=== PATIENT | male | born 1955 ===

== ENCOUNTER 2017-11-16 19:09 | Emergency (ER) | payer SELFPAY ==
[2017-11-16] MEDS ORDERED: MOTRIN PO ONE (19:35)
[2017-11-16] MEDS ORDERED: MOTRIN ONE (19:39)
[2017-11-16] MEDS ORDERED: TYLENOL PO ONE (21:01)
--- NOTE | 2017-11-16 21:06 | Emergency Department Report ---
ED Fall HPI - General Chief Complaint: Fall Stated Complaint: BACK/SHOULDER PAIN Time Seen by Provider: 11/16/17 20:14 Source: patient Mode of arrival: Ambulatory Limitations: No Limitations - History of Present Illness Initial Comments: 61-year-old male with a past medical history left hip replacement in 2013 presents to the hospital after falling off of a 10 foot roof 2 hours prior to arrival. Patient was cleaning off gutters and fell backwards landing flat when his back. He denies head injury or LOC. Complains of right sided neck pain and left shoulder pain that is moderate in intensity, constant, worse with movement and palpation. Denies paresthesias or focal weakness. - Related Data Previous Rx's Medication Instructions Recorded Last Taken Type Ibuprofen [Motrin] 800 mg PO Q8HR PRN #30 tablet 11/16/17 Unknown Rx Allergies Allergy/AdvReac Type Severity Reaction Status Date / Time No Known Allergies Allergy Unverified 11/16/17 19:23 ED Review of Systems ROS: Stated complaint: BACK/SHOULDER PAIN Other details as noted in HPI Comment: All other systems reviewed and negative ED Past Medical Hx - Past Medical History Previous Medical History?: No - Surgical History Past Surgical History?: Yes Additional Surgical History: Left Hip replacement/ 2013 - Social History Smoking Status: Never Smoker Substance Use Type: None - Medications Home Medications: Home Medications Medication Instructions Recorded Confirmed Last Taken Type Ibuprofen [Motrin] 800 mg PO Q8HR PRN #30 tablet 11/16/17 Unknown Rx ED Physical Exam - General Limitations: No Limitations - Other Other exam information: General: No limitations, patient is alert in no acute distress Head exam: Atraumatic, normocephalic Eyes exam: Normal appearance, pupils equal reactive to light, extraocular movements intact ENT: Moist mucous membrane, normal oropharynx Neck exam: Normal inspection, full range of motion, no meningismus, no midline or paracervical muscle tenderness Respiratory exam: Clear to auscultation bilateral, no wheezes, rales, crackles Cardiovascular: Normal rate and rhythm, normal heart sounds Abdomen: Soft, nondistended, mild right flank tenderness, with normal bowel sounds, no rebound, or guarding Extremity: Full range of motion normal inspection no deformity. Left shoulder from, mild pain with movement, no deformity Back: Normal Inspection, full range of motion, no midline lumbar spinous process tenderness. Tenderness to right paraspinal muscles Neurologic: Alert, oriented x3, cranial nerves intact, no motor or sensory deficit Psychiatric: normal affect, normal mood Skin: Warm, dry, intact ED Course Vital Signs 11/16/17 11/16/17 19:24 22:43 Temperature 98.7 F Pulse Rate 74 52 L Respiratory 16 18 Rate Blood Pressure 158/109 Blood Pressure 126/79 [Left] O2 Sat by Pulse 98 99 Oximetry ED Medical Decision Making - Lab Data Lab Results 11/16/17 Range/Units 21:53 Urine Color Yellow (Yellow) Urine Turbidity Clear (Clear) Urine pH 5.0 (5.0-7.0) Ur Specific [place] 1.015 (1.003-1.030) Urine Protein <15 mg/dl (Negative) mg/dL Urine Glucose (UA) Neg (Negative) mg/dL Urine Ketones Neg (Negative) mg/dL Urine Blood Sm (Negative) Urine Nitrite Neg (Negative) Urine Bilirubin Neg (Negative) Urine Urobilinogen < 2.0 (<2.0) mg/dL Ur Leukocyte Esterase Neg (Negative) Urine WBC (Auto) < 1.0 (0.0-6.0) /HPF Urine RBC (Auto) 4.0 (0.0-6.0) /HPF Urine Mucus Few /HPF - Radiology Data Radiology results: report reviewed FINAL REPORT PROCEDURE: XR SHOULDER 2+V LT TECHNIQUE: LEFT shoulder radiographs including AP views in internal and external rotation and abduction. CPT 00771 HISTORY: s/p fall shoulder pain COMPARISON: No prior studies are available for comparison. FINDINGS: Fracture (s) and/or Dislocation(s): None . Joint space(s): Normal . Soft tissues: Normal . Bone mineralization: Normal . Foreign bodies: None . IMPRESSION: Normal Examination FINAL REPORT PROCEDURE: CT CHEST WO CON TECHNIQUE: Computerized axial tomography of the chest was performed without contrast material. This study is performed without intravenous contrast and the sensitivity for pathology, including neoplasms, adenopathy, abscess, pulmonary embolism and aortic dissection, is reduced. HISTORY: s/p 10ft fall pain COMPARISON: No prior studies are available for comparison. TECHNICAL QUALITY: Satisfactory. FINDINGS: Bilateral lungs and pleural spaces are clear. Hilar structures are within normal limits as visualized on this noncontrast study. Aorta is of normal caliber. There is no evidence of any mediastinal hematoma. Thyroid demonstrates normal size and density. Coronary arterial calcification is noted. There is no pericardial effusion. Mediastinal structures are within normal limits. Vertebral height is normal. Idiopathic skeletal hyperostosis changes are noted involving the lower thoracic spine. Ribs are intact. Sternum and other bones are also intact. IMPRESSION: No acute thoracic injury. No acute pulmonary process. Coronary arterial calcification is noted.. FINAL REPORT PROCEDURE: CT ABDOMEN PELVIS WO CON TECHNIQUE: Computerized axial tomography of the abdomen and pelvis was performed without intravenous contrast. This study is performed without intravascular contrast material and its sensitivity for abdominal and pelvic pathology, including neoplasms, inflammation, abscess, free fluid, thrombosis, arterial dissection and infarction, is reduced compared with a contrast enhanced study. HISTORY: s/p 10ft fall pain COMPARISON: No prior studies are available for comparison. FINDINGS: There are 2 small cystic lesions in the liver larger measuring 7 millimeters and smaller measuring 5 millimeters as seen in images 167 of series 2. An ill-defined hypodense lesion measuring 0.9 centimeters is located in the subdiaphragmatic region of segment 4 as seen image 149 of series 2. Spleen, pancreas and adrenal glands are within normal limits. Bilateral kidneys demonstrate normal density without hydronephrosis or perinephric fluid collections. Aorta is of normal caliber. Small bowel loops are within normal limits. There is mild degree residual stool. Appendix is normal. Urinary bladder is normally filled with normal outlines. There is mild prostatomegaly. Moderate degree degenerative changes are noted involving the lumbar spine with areas of spinal canal stenosis. Vertebral height is normal. Pelvic bones are intact. IMPRESSION: No acute intra-abdominal or pelvic visceral injury. Two small cystic lesions and a small ill-defined hypodense lesion are noted in the liver as described above. Post-contrast CT or MRI may be recommended for further evaluation. - Medical Decision Making fall no injury on imaging studies no gross hematuria no neuro deficits pt tx with motrin and tylenol diag: lumbar strain, left shoulder strain sling, motrin, f/u for diag and incidental ct findings - Differential Diagnosis fracture, contusion, sprain Critical Care Time: No Critical care attestation.: If time is entered above; I have spent that time in minutes in the direct care of this critically ill patient, excluding procedure time. ED Disposition Clinical Impression: Fall, Lumbar contusion, Shoulder sprain, Liver cyst Disposition: TO HOME OR SELFCARE Is pt being admited?: No Does the pt Need Aspirin: No Condition: Stable Instructions: Low Back Strain (ED), Shoulder Sprain (ED) Additional Instructions: Take the medication as prescribed. Follow up with your doctor or the doctor provided. Return if symptoms worsen as indicated by your discharge instructions. Follow-up with your doctor for further evaluation of incidental findings of coronary/heart calcifications and liver cysts seen on your cat scans. Take the copy of the scans provided to your doctor for follow up. Prescriptions: Ibuprofen [Motrin] 800 mg PO Q8HR PRN #30 tablet PRN Reason: Pain, Moderate (4-6) Referrals: PRIMARY CARE, [Primary Care Provider] - 3-5 Days SYEDA VÁZQUEZ MD [Staff Physician] - 3-5 Days Time of Disposition: 22:53
--- NOTE | 2017-11-16 21:18 | Cat Scan Report ---
FINAL REPORT PROCEDURE: CT CHEST WO CON TECHNIQUE: Computerized axial tomography of the chest was performed without contrast material. This study is performed without intravenous contrast and the sensitivity for pathology, including neoplasms, adenopathy, abscess, pulmonary embolism and aortic dissection, is reduced. HISTORY: s/p 10ft fall pain COMPARISON: No prior studies are available for comparison. TECHNICAL QUALITY: Satisfactory. FINDINGS: Bilateral lungs and pleural spaces are clear. Hilar structures are within normal limits as visualized on this noncontrast study. Aorta is of normal caliber. There is no evidence of any mediastinal hematoma. Thyroid demonstrates normal size and density. Coronary arterial calcification is noted. There is no pericardial effusion. Mediastinal structures are within normal limits. Vertebral height is normal. Idiopathic skeletal hyperostosis changes are noted involving the lower thoracic spine. Ribs are intact. Sternum and other bones are also intact. IMPRESSION: No acute thoracic injury. No acute pulmonary process. Coronary arterial calcification is noted..
--- NOTE | 2017-11-16 21:27 | Cat Scan Report ---
FINAL REPORT PROCEDURE: CT ABDOMEN PELVIS WO CON TECHNIQUE: Computerized axial tomography of the abdomen and pelvis was performed without intravenous contrast. This study is performed without intravascular contrast material and its sensitivity for abdominal and pelvic pathology, including neoplasms, inflammation, abscess, free fluid, thrombosis, arterial dissection and infarction, is reduced compared with a contrast enhanced study. HISTORY: s/p 10ft fall pain COMPARISON: No prior studies are available for comparison. FINDINGS: There are 2 small cystic lesions in the liver larger measuring 7 millimeters and smaller measuring 5 millimeters as seen in images 167 of series 2. An ill-defined hypodense lesion measuring 0.9 centimeters is located in the subdiaphragmatic region of segment 4 as seen image 149 of series 2. Spleen, pancreas and adrenal glands are within normal limits. Bilateral kidneys demonstrate normal density without hydronephrosis or perinephric fluid collections. Aorta is of normal caliber. Small bowel loops are within normal limits. There is mild degree residual stool. Appendix is normal. Urinary bladder is normally filled with normal outlines. There is mild prostatomegaly. Moderate degree degenerative changes are noted involving the lumbar spine with areas of spinal canal stenosis. Vertebral height is normal. Pelvic bones are intact. IMPRESSION: No acute intra-abdominal or pelvic visceral injury. Two small cystic lesions and a small ill-defined hypodense lesion are noted in the liver as described above. Post-contrast CT or MRI may be recommended for further evaluation.
--- NOTE | 2017-11-16 21:27 | XRay Report ---
FINAL REPORT PROCEDURE: XR SHOULDER 2+V LT TECHNIQUE: LEFT shoulder radiographs including AP views in internal and external rotation and abduction. CPT 39191 HISTORY: s/p fall shoulder pain COMPARISON: No prior studies are available for comparison. FINDINGS: Fracture (s) and/or Dislocation(s): None . Joint space(s): Normal . Soft tissues: Normal . Bone mineralization: Normal . Foreign bodies: None . IMPRESSION: Normal Examination
[2017-11-16 22:01] LABS: Bilirubin,Urine NEG (Negative); Blood,Urine SM (Negative); Color,Urine Yellow (Yellow); Mucus,Urine FEW /HPF; Protein,Urine <15 mg/dL mg/dL (Negative); Urobilinogen,Urine < 2.0 mg/dL (<2.0); WBC,Urine < 1.0 /HPF (0.0-6.0)
[2017-11-16 22:44] VITALS: BP 126/79
== END 2017-11-16 23:12 | disposition home or self-care (01) ==
LOC: ED 19:09
DX: S30.0XXA Contusion of lower back and pelvis, initial encounter (principal); S40.012A Contusion of left shoulder, initial encounter; Z96.642 Presence of left artificial hip joint; W13.2XXA Fall from, out of or through roof, initial encounter; Y93.H3 Activity, building and construction; Y99.8 Other external cause status; Y92.89 Other specified places as the place of occurrence of the external cause
CPT/HCPCS: 71250; 74176; 81001